=== PATIENT | male | born 1940 | race Caucasian/White ===

== ENCOUNTER 2021-06-02 14:30 | Inpatient (IN) | payer MEDICARE, BC ==
[2021-06-02 16:01] VITALS: BMI 22.7
[2021-06-07] MEDS ORDERED: Ketorolac Tromethamine 30 MG/ML VIAL ONE (08:13)
[2021-06-07] MEDS ORDERED: Gabapentin 300 MG CAP ONE (08:13)
[2021-06-07] MEDS ORDERED: Acetaminophen 500 MG TAB ONE (08:13)
[2021-06-07] MEDS ORDERED: Midazolam HCl 2 mg/2 ml Vial ONE (08:32)
[2021-06-07] MEDS ORDERED: Fentanyl 100 MCG/2 ML VIAL ONE ×2 (08:32→10:19)
[2021-06-07] MEDS ORDERED: HYDROmorphone 0.5 MG/0.5 ML SYRINGE ONE (10:19)
[2021-06-07] MEDS ORDERED: Piperacillin/Tazobactam 3.375 GM VIAL ONE (10:24)
[2021-06-07] MEDS ORDERED: Sodium Chloride 0.9% 100 ML ONE (10:25)
[2021-06-07] MEDS ORDERED: Ropivacaine 0.5% HCl/PF (150 MG/30 ML VIAL) ONE (10:35)
[2021-06-07] MEDS ORDERED: Dexamethasone 20 MG/5 ML VIAL ONE (10:35)
[2021-06-07] MEDS ORDERED: ePHEDrine 50 MG/ML VIAL ONE (10:35)
[2021-06-07] MEDS ORDERED: PROPOFOL 200 MG/20 ML VIAL ONE (10:35)
[2021-06-07] MEDS ORDERED: Lidocaine 1% PF 5 ML VIAL ONE (10:35)
[2021-06-07] MEDS ORDERED: Ondansetron PF 4 MG/2 ML Vial ONE (10:35)
[2021-06-07] MEDS ORDERED: PHENYLEPHRINE-NS 100 MCG/ML 10 ML SYRINGE ONE (10:35)
[2021-06-07] MEDS ORDERED: Rocuronium Bromide 10 MG/ML (10ML VIAL) ONE (10:35)
[2021-06-07] MEDS ORDERED: Promethazine HCl 25 MG/ML VIAL IVPB PRN (13:19)
[2021-06-07] MEDS ORDERED: HYDROmorphone 2 MG/ML VIAL SLOW IVP PRN (13:19)
[2021-06-07] MEDS ORDERED: Promethazine HCl 25 MG/ML VIAL IM PRN (13:19)
[2021-06-07] MEDS ORDERED: Ondansetron HCl/PF 4 MG/2 ML Vial IVP PRN (13:19)
[2021-06-07] MEDS ORDERED: Ondansetron PF 4 MG/2 ML Vial IVP PRN (14:28)
[2021-06-07] MEDS ORDERED: Morphine 4 MG/ML VIAL SLOW IVP PRN ×3 (14:28→14:46)
[2021-06-07] MEDS ORDERED: Acetaminophen 500 MG TAB PO SCH (14:45)
[2021-06-07] MEDS ORDERED: Clindamycin/D5W 900 MG in Premix Bag 1 BAG IVPB SCH (15:00)
[2021-06-07] MEDS: D5 1/2 NS w/20 mEq KCL 1,000 ML IV SCH ×2 (19:37→20:29)
[2021-06-07] MEDS: Gabapentin 100 MG CAP PO SCH ×2 (19:38→20:31)
[2021-06-07] MEDS: Ketorolac Tromethamine 30 MG/ML VIAL IVP SCH ×2 (19:39→23:48)
[2021-06-07] MEDS: Famotidine 20 MG TAB PO SCH (20:30)
[2021-06-07] MEDS: Acetaminophen 500 MG TAB PO SCH (20:30)
[2021-06-07] MEDS: Enoxaparin Sodium 40 MG/0.4 ML SYRINGE SC SCH (20:30)
[2021-06-07] MEDS: Carvedilol 6.25 MG TAB PO SCH (20:30)
[2021-06-07] MEDS: Clindamycin/D5W 900 MG in Premix Bag 1 BAG IVPB SCH (20:31)
[2021-06-08] MEDS: Acetaminophen 500 MG TAB PO SCH ×5 (02:17→19:38)
[2021-06-08] MEDS: Clindamycin/D5W 900 MG in Premix Bag 1 BAG IVPB SCH ×2 (02:18→08:18)
[2021-06-08 05:31] LABS: #Lymphocytes 1.3 thou/uL (1.20-3.40); #Monocytes 1.1 thou/uL (0.11-0.59); #Neutrophils 12.1 thou/uL (1.40-6.50); %Basophils 0.1 % (0.0-1.0); %Eosinophils 0.1 % (0.0-10.0); %Lymphocytes 9.1 % (21.0-51.0); %Monocytes 7.3 % (0.0-10.0); %Neutrophils 83.5 % (42.0-75.0); Hemoglobin 11.8 g/dL (14.0-18.0); Mean Corpuscular HGB CONC 32.2 g/dL (32.0-36.0); Mean Corpuscular Hemoglobin 32.3 pg (27.0-31.0); Mean Platelet Volume 6.5 fL (7.4-10.4); Platelet Count 234 thou/uL (130-400); RBC Distribution Width 11.1 % (11.5-14.5); Red Blood Cell (RBC) Count 3.64 mill/uL (4.70-6.10); White Blood Cell (WBC) Count 14.5 thou/uL (4.8-10.8)
[2021-06-08] MEDS: Ketorolac Tromethamine 30 MG/ML VIAL IVP SCH ×4 (05:40→23:53)
[2021-06-08] MEDS: D5 1/2 NS w/20 mEq KCL 1,000 ML IV SCH (05:42)
[2021-06-08 05:49] LABS: Anion Gap 10 mmol/L (10-20); BUN (Urea Nitrogen) 9 mg/dL (8.4-25.7); Calc. Creatinine Clearance 70 mL/min (70-130); Calcium 8.4 mg/dL (7.8-10.44); Carbon Dioxide 24 mmol/L (23-31); Chloride 100 mmol/L (98-107); Glucose 161 mg/dL (83-110); Potassium 4.3 mmol/L (3.5-5.1); Sodium 130 mmol/L (136-145)
[2021-06-08] MEDS ORDERED: Sodium Chloride 0.9% 1,000 ML IV SCH (07:45)
[2021-06-08] MEDS: Famotidine 20 MG TAB PO SCH ×2 (08:20→19:38)
[2021-06-08] MEDS: Gabapentin 100 MG CAP PO SCH ×4 (08:20→19:38)
[2021-06-08] MEDS: Carvedilol 6.25 MG TAB PO SCH ×2 (08:20→19:39)
[2021-06-08 16:12] LABS: #Lymphocytes 1.4 thou/uL (1.20-3.40); #Neutrophils 12.9 thou/uL (1.40-6.50); %Basophils 0.1 % (0.0-1.0); %Eosinophils 0.2 % (0.0-10.0); %Lymphocytes 8.9 % (21.0-51.0); %Monocytes 6.6 % (0.0-10.0); %Neutrophils 84.1 % (42.0-75.0); Hemoglobin 11.6 g/dL (14.0-18.0); Mean Corpuscular HGB CONC 33.2 g/dL (32.0-36.0); Mean Corpuscular Hemoglobin 33.3 pg (27.0-31.0); Mean Platelet Volume 6.4 fL (7.4-10.4); Platelet Count 225 thou/uL (130-400); RBC Distribution Width 11.2 % (11.5-14.5); Red Blood Cell (RBC) Count 3.49 mill/uL (4.70-6.10); White Blood Cell (WBC) Count 15.3 thou/uL (4.8-10.8)
[2021-06-08] MEDS: Sodium Chloride 0.9% 1,000 ML IV SCH (19:38)
[2021-06-08] MEDS: Enoxaparin Sodium 40 MG/0.4 ML SYRINGE SC SCH (19:39)
[2021-06-09] MEDS: Acetaminophen 500 MG TAB PO SCH ×3 (02:17→15:38)
[2021-06-09] MEDS: Ketorolac Tromethamine 30 MG/ML VIAL IVP SCH ×2 (05:23→12:43)
[2021-06-09 05:31] LABS: #Lymphocytes 1.3 thou/uL (1.20-3.40); #Monocytes 1.2 thou/uL (0.11-0.59); #Neutrophils 11.3 thou/uL (1.40-6.50); %Eosinophils 0.1 % (0.0-10.0); %Lymphocytes 9.6 % (21.0-51.0); %Monocytes 8.9 % (0.0-10.0); %Neutrophils 81.4 % (42.0-75.0); Hemoglobin 11.5 g/dL (14.0-18.0); Mean Corpuscular HGB CONC 32.7 g/dL (32.0-36.0); Mean Corpuscular Hemoglobin 33.1 pg (27.0-31.0); Mean Platelet Volume 6.4 fL (7.4-10.4); Platelet Count 192 thou/uL (130-400); RBC Distribution Width 11.2 % (11.5-14.5); Red Blood Cell (RBC) Count 3.47 mill/uL (4.70-6.10); White Blood Cell (WBC) Count 13.9 thou/uL (4.8-10.8)
[2021-06-09 05:53] LABS: Anion Gap 6 mmol/L (10-20); BUN (Urea Nitrogen) 11 mg/dL (8.4-25.7); Calc. Creatinine Clearance 78 mL/min (70-130); Calcium 8.1 mg/dL (7.8-10.44); Carbon Dioxide 27 mmol/L (23-31); Chloride 102 mmol/L (98-107); Glucose 103 mg/dL (83-110); Potassium 4.2 mmol/L (3.5-5.1); Sodium 131 mmol/L (136-145)
[2021-06-09] MEDS: Carvedilol 6.25 MG TAB PO SCH (08:26)
[2021-06-09] MEDS: Gabapentin 100 MG CAP PO SCH ×2 (08:27→15:39)
[2021-06-09] MEDS: Famotidine 20 MG TAB PO SCH (08:28)
[2021-06-09] MEDS: Sodium Chloride 0.9% 1,000 ML IV SCH (08:29)
[2021-06-09] MEDS ORDERED: traMADol HCl 50 MG TAB PO PRN (14:18)
[2021-06-09] MEDS ORDERED: Cyanocobalamin (Vitamin B-12) 1,000 MCG TAB PO SCH (15:00)
[2021-06-09] MEDS ORDERED: Ibuprofen 600 MG TAB PO PRN (15:56)
[2021-06-09 16:39] VITALS: BP 122/72; TEMP 98.3
[2021-06-09] MEDS ORDERED: Vit A,C & E/Lutein/Minerals Tablet PO SCH (21:00)
[2021-06-10] MEDS ORDERED: Cholecalciferol 1,000 UNITS (25 MCG) TAB PO SCH (09:00)
== END 2021-06-09 17:50 | disposition home or self-care (01) | DRG 330 ==
LOC: SURG A 06-07 05:55 → SURG B 06-07 18:09
PROVIDERS: ADMIT Specialist; ATTEND Specialist
PROC: 0DTN4ZZ Resection of Sigmoid Colon, Percutaneous Endoscopic Approach (ICD-10-PCS; principal; 2021-06-07)
DX: K57.32 Diverticulitis of large intestine without perforation or abscess without bleeding (principal); N13.8 Other obstructive and reflux uropathy; I42.9 Cardiomyopathy, unspecified; Z20.822 Contact with and (suspected) exposure to COVID-19; N40.1 Benign prostatic hyperplasia with lower urinary tract symptoms; K21.9 Gastro-esophageal reflux disease without esophagitis; I50.9 Heart failure, unspecified; E78.5 Hyperlipidemia, unspecified; E55.9 Vitamin D deficiency, unspecified; G43.909 Migraine, unspecified, not intractable, without status migrainosus; K40.90 Unilateral inguinal hernia, without obstruction or gangrene, not specified as recurrent; I48.91 Unspecified atrial fibrillation; R33.8 Other retention of urine; Z95.0 Presence of cardiac pacemaker; Z86.16 Personal history of COVID-19; Z79.52 Long term (current) use of systemic steroids; Z79.899 Other long term (current) drug therapy; Z90.49 Acquired absence of other specified parts of digestive tract; Z90.89 Acquired absence of other organs; Z88.2 Allergy status to sulfonamides; Z88.8 Allergy status to other drugs, medicaments and biological substances
CPT/HCPCS: 36415; 36416; 80048; 85025; 88307; A4649; C1713; J1100; J1170; J1650; J1885; J2250; J2405; J2543; J2704; J2795; J3010; J3480; J3490; J7050

== ENCOUNTER 2021-06-02 14:32 | Outpatient (CLI) | payer MEDICARE, BC ==
[2021-06-03 16:11] LABS: SARS-CoV-2 PCR by NAA Not Detected (NotDetected)
== END 2021-06-02 14:33 | disposition home or self-care (01) ==
LOC: LABBT 14:32
PROVIDERS: ATTEND Specialist
DX: Z01.818 Encounter for other preprocedural examination (principal); K57.92 Diverticulitis of intestine, part unspecified, without perforation or abscess without bleeding; Z20.822 Contact with and (suspected) exposure to COVID-19
CPT/HCPCS: 93005; U0003; U0005; 93010

== ENCOUNTER 2021-08-09 07:12 | Outpatient (CLI) | payer MEDICARE, BC | END 2021-08-09 07:13 | disposition home or self-care (01) | LOC: ULT 07:12 | PROVIDERS: ATTEND Family Medicine | DX: R10.13 Epigastric pain (principal); K76.89 Other specified diseases of liver | CPT/HCPCS: 76700 ==

== ENCOUNTER 2021-08-16 10:16 | Outpatient (CLI) | payer MEDICARE, BC | END 2021-08-16 10:17 | disposition home or self-care (01) | LOC: BICRAD 10:16 | PROVIDERS: ATTEND Family Medicine | DX: R10.9 Unspecified abdominal pain (principal) | CPT/HCPCS: 74019 ==

== ENCOUNTER 2021-08-16 14:55 | Inpatient (IN) | payer MEDICARE, BC ==
[2021-08-16 15:36] LABS: #Eosinphils 0.1 thou/uL (0.0-0.7); #Lymphocytes 2.3 thou/uL (1.20-3.40); #Monocytes 0.5 thou/uL (0.11-0.59); #Neutrophils 5.5 thou/uL (1.40-6.50); %Basophils 0.5 % (0.0-1.0); %Eosinophils 1.1 % (0.0-10.0); %Lymphocytes 27.6 % (21.0-51.0); %Monocytes 5.5 % (0.0-10.0); %Neutrophils 65.3 % (42.0-75.0); Hemoglobin 13.5 g/dL (14.0-18.0); Mean Corpuscular HGB CONC 32.3 g/dL (32.0-36.0); Mean Corpuscular Hemoglobin 32.1 pg (27.0-31.0); Mean Corpuscular Volume 99.5 fL (78.0-98.0); Platelet Count 273 thou/uL (130-400); RBC Distribution Width 11.7 % (11.5-14.5); Red Blood Cell (RBC) Count 4.19 mill/uL (4.70-6.10); White Blood Cell (WBC) Count 8.5 thou/uL (4.8-10.8)
[2021-08-16 15:54] LABS: ALT (SGPT) 11 U/L (8-55); AST (SGOT) 15 U/L (5-34); Albumin 3.9 g/dL (3.4-4.8); Alkaline Phosphatase 66 U/L (40-110); Anion Gap 12 mmol/L (10-20); BUN (Urea Nitrogen) 13 mg/dL (8.4-25.7); Bilirubin, Total 1.5 mg/dL (0.2-1.2); Calc. Creatinine Clearance 0 mL/min (70-130); Calcium 9.3 mg/dL (7.8-10.44); Carbon Dioxide 29 mmol/L (23-31); Chloride 100 mmol/L (98-107); Glucose 106 mg/dL (83-110); Lipase 14 U/L (8-78); Potassium 3.8 mmol/L (3.5-5.1); Protein, Total 6.9 g/dL (5.8-8.1); Sodium 137 mmol/L (136-145)
[2021-08-16 16:07] LABS: Bilirubin Negative (Negative); Blood, Urine Negative (Negative); Clarity Clear (Clear); Glucose, Urine (Dipstick) Normal (Negative); Ketone, Urine 10 mg/dL (Negative); Leukocyte Negative Leu/uL (Negative); Nitrite Negative (Negative); Protein, Urine (Dipstick) 10 mg/dL (Neg-Trace); Specific Gravity, Urine 1.022 (1.002-1.036); Urobilinogen Normal mg/dL (Less than 2)
[2021-08-16] MEDS ORDERED: metroNIDAZOLE 500 MG in Premix Bag 1 BAG IVPB SCH ×3 (17:15→23:59)
[2021-08-16] MEDS ORDERED: Sodium Chloride 0.9% 1,000 ML IV SCH ×2 (17:15→18:15)
[2021-08-16] MEDS ORDERED: Vancomycin 25 MG/ML Oral SOLN PO SCH ×2 (17:30→20:00)
[2021-08-16] MEDS ORDERED: metroNIDAZOLE 500 MG/100 ML BAG ONE (18:04)
[2021-08-16] MEDS ORDERED: Acetaminophen 325 MG TAB PO PRN (18:12)
[2021-08-16] MEDS ORDERED: Acetaminophen 650 MG Suppository PR PRN (18:12)
[2021-08-16] MEDS ORDERED: Ondansetron PF 4 MG/2 ML Vial IVP PRN (18:12)
[2021-08-16] MEDS ORDERED: Melatonin 3 MG TAB PO PRN (18:20)
[2021-08-16 20:12] VITALS: BMI 21.2
[2021-08-16] MEDS ORDERED: Pantoprazole 40 MG VIAL IVP SCH (21:00)
[2021-08-16] MEDS: Heparin 5,000 UNITS/ML VIAL SC SCH (21:38)
[2021-08-16] MEDS ORDERED: Carvedilol 6.25 MG TAB PO SCH (23:59)
[2021-08-17] MEDS: Dextrose 5 %-0.45 % NaCl 1,000 ML IV SCH ×4 (00:10→23:45)
[2021-08-17] MEDS: metroNIDAZOLE 500 MG in Premix Bag 1 BAG IVPB SCH ×2 (01:10→08:30)
[2021-08-17] MEDS: Vancomycin 25 MG/ML Oral SOLN PO SCH ×6 (01:11→23:25)
[2021-08-17 06:09] LABS: #Lymphocytes 1.9 thou/uL (1.20-3.40); #Monocytes 0.5 thou/uL (0.11-0.59); %Basophils 0.2 % (0.0-1.0); %Eosinophils 0.4 % (0.0-10.0); %Lymphocytes 20.3 % (21.0-51.0); %Neutrophils 74.1 % (42.0-75.0); Hemoglobin 12.3 g/dL (14.0-18.0); Mean Corpuscular HGB CONC 32.3 g/dL (32.0-36.0); Mean Corpuscular Volume 98.8 fL (78.0-98.0); Mean Platelet Volume 6.2 fL (7.4-10.4); Platelet Count 245 thou/uL (130-400); RBC Distribution Width 11.5 % (11.5-14.5); Red Blood Cell (RBC) Count 3.85 mill/uL (4.70-6.10); White Blood Cell (WBC) Count 9.5 thou/uL (4.8-10.8)
[2021-08-17 06:40] LABS: ALT (SGPT) 8 U/L (8-55); AST (SGOT) 12 U/L (5-34); Albumin 3.3 g/dL (3.4-4.8); Alkaline Phosphatase 53 U/L (40-110); Anion Gap 10 mmol/L (10-20); BUN (Urea Nitrogen) 12 mg/dL (8.4-25.7); Bilirubin, Total 1.2 mg/dL (0.2-1.2); Calc. Creatinine Clearance 71 mL/min (70-130); Calcium 8.6 mg/dL (7.8-10.44); Carbon Dioxide 25 mmol/L (23-31); Chloride 103 mmol/L (98-107); Globulin 2.4 g/dL (2.4-3.5); Glucose 134 mg/dL (83-110); Potassium 3.6 mmol/L (3.5-5.1); Protein, Total 5.7 g/dL (5.8-8.1); Sodium 134 mmol/L (136-145)
[2021-08-17] MEDS: Heparin 5,000 UNITS/ML VIAL SC SCH ×2 (08:20→20:58)
[2021-08-17] MEDS: Carvedilol 6.25 MG TAB PO SCH ×2 (08:24→20:57)
[2021-08-17] MEDS ORDERED: Pantoprazole 40 MG VIAL IVP SCH (09:00)
[2021-08-17] MEDS: Fidaxomicin 200 MG TAB PO SCH (20:57)
[2021-08-18] MEDS: Vancomycin 25 MG/ML Oral SOLN PO SCH (05:48)
[2021-08-18] MEDS ORDERED: Famotidine 20 MG TAB PO SCH (09:00)
[2021-08-18] MEDS: Heparin 5,000 UNITS/ML VIAL SC SCH (09:02)
[2021-08-18] MEDS: Fidaxomicin 200 MG TAB PO SCH (09:11)
[2021-08-18] MEDS: Carvedilol 6.25 MG TAB PO SCH (09:11)
[2021-08-18 12:56] VITALS: BP 162/85; TEMP 97.6
== END 2021-08-18 13:29 | disposition home or self-care (01) | DRG 372 ==
LOC: ERS 14:55 → T4-B 16:50 → OBSVTOIN 08-17 11:44
PROVIDERS: ADMIT Internal Medicine; ATTEND Internal Medicine
DX: A04.72 Enterocolitis due to Clostridium difficile, not specified as recurrent (principal); K57.32 Diverticulitis of large intestine without perforation or abscess without bleeding; I42.9 Cardiomyopathy, unspecified; K21.9 Gastro-esophageal reflux disease without esophagitis; I49.5 Sick sinus syndrome; N40.0 Benign prostatic hyperplasia without lower urinary tract symptoms; I25.10 Atherosclerotic heart disease of native coronary artery without angina pectoris; Z20.822 Contact with and (suspected) exposure to COVID-19; Z88.8 Allergy status to other drugs, medicaments and biological substances; Z90.49 Acquired absence of other specified parts of digestive tract; Z88.2 Allergy status to sulfonamides; Z79.899 Other long term (current) drug therapy; Z95.0 Presence of cardiac pacemaker; R10.9 Unspecified abdominal pain
CPT/HCPCS: 36415; 74019; 74176; 80053; 81003; 83605; 83690; 85025; J7042; J7050; U0003; U0005

== ENCOUNTER 2021-10-17 14:34 | Outpatient (CLI) | payer MEDICARE, BC ==
[2021-10-17 15:38] LABS: #Basophils 0.1 10x3/uL (0.0-0.2); #Eosinphils 0.3 10x3/uL (0.0-0.5); #Monocytes 0.5 10x3/uL (0.0-1.1); #Neutrophils 5.4 10x3/uL (1.5-8.4); %Basophils 0.7 % (0.0-2.0); %Eosinophils 2.9 % (0.0-6.0); %Lymphocytes 28.9 % (18.0-47.0); %Monocytes 5.8 % (0.0-10.0); %Neutrophils 61.5 % (40.0-75.0); Hemoglobin 13.5 g/dL (13.5-17.5); Mean Corpuscular HGB CONC 33.2 g/dL (32.0-36.0); Mean Corpuscular Hemoglobin 30.8 pg (27.0-33.0); Mean Corpuscular Volume 92.9 fl (81.2-95.1); Mean Platelet Volume 9.2 fl (7.4-10.4); Platelet Count 253 10x3/uL (150-450); RBC Distribution Width 12.4 % (11.5-14.5); Red Blood Cell (RBC) Count 4.38 10x6/uL (4.32-5.72); White Blood Cell (WBC) Count 8.8 10x3/uL (3.5-10.5)
[2021-10-17 16:15] LABS: ALT (SGPT) 16 U/L (8-55); AST (SGOT) 17 U/L (5-34); Albumin 4.2 g/dL (3.4-4.8); Alkaline Phosphatase 72 U/L (40-110); Anion Gap 13 mmol/L (10-20); BUN (Urea Nitrogen) 15 mg/dL (8.4-25.7); Bilirubin, Total 0.7 mg/dL (0.2-1.2); Calc. Creatinine Clearance 0 mL/min (70-130); Calcium 9.7 mg/dL (7.8-10.44); Carbon Dioxide 27 mmol/L (23-31); Chloride 102 mmol/L (98-107); Estimated GFR 90; Globulin 2.7 g/dL (2.4-3.5); Glucose 112 mg/dL (83-110); Potassium 4.2 mmol/L (3.5-5.1); Protein, Total 6.9 g/dL (5.8-8.1); Sodium 138 mmol/L (136-145)
== END 2021-10-17 14:35 | disposition home or self-care (01) ==
LOC: LABBT 14:34
PROVIDERS: ATTEND Specialist
DX: Z01.818 Encounter for other preprocedural examination (principal); Z20.822 Contact with and (suspected) exposure to COVID-19
CPT/HCPCS: 80053; 85025; 87811; 93005; 93010

== ENCOUNTER 2021-10-20 07:30 | Day surgery (SDC) | payer MEDICARE, BC ==
[2021-10-18 13:15] VITALS: BMI 21.7
[2021-10-20] MEDS ORDERED: Ketorolac Tromethamine 30 MG/ML VIAL ONE (08:01)
[2021-10-20] MEDS ORDERED: Acetaminophen 500 MG TAB ONE (08:01)
[2021-10-20] MEDS ORDERED: Gabapentin 300 MG CAP ONE (08:01)
[2021-10-20] MEDS ORDERED: Bupivacaine/Epinephrine 0.25% 30 ML VIAL ONE (08:59)
[2021-10-20] MEDS ORDERED: Sodium Chloride 0.9% 100 ML ONE (09:51)
[2021-10-20] MEDS ORDERED: CEFAZOLIN 2 GM VIAL ONE (09:51)
[2021-10-20] MEDS ORDERED: fentaNYL Citrate/PF 100 MCG/2 ML SYRINGE ONE (09:54)
[2021-10-20] MEDS ORDERED: Glycopyrrolate 0.2 MG/ML 5 ML SYRINGE ONE (10:09)
[2021-10-20] MEDS ORDERED: PROPOFOL 200 MG/20 ML VIAL ONE (10:09)
[2021-10-20] MEDS ORDERED: Labetalol HCl 100 MG/20 ML VIAL ONE (10:09)
[2021-10-20] MEDS ORDERED: Ondansetron PF 4 MG/2 ML Vial ONE (10:09)
[2021-10-20] MEDS ORDERED: ePHEDrine 50 MG/ML VIAL ONE (10:09)
[2021-10-20] MEDS ORDERED: Rocuronium Bromide 10 MG/ML (10ML VIAL) ONE (10:09)
[2021-10-20] MEDS ORDERED: Lidocaine 1% PF 5 ML VIAL ONE (10:09)
[2021-10-20] MEDS ORDERED: Neostigmine Methylsulfate 3 MG/3 ML SYRINGE ONE (10:09)
[2021-10-20] MEDS ORDERED: Dexamethasone 20 MG/5 ML VIAL ONE (10:09)
[2021-10-20] MEDS ORDERED: Tamsulosin HCl 0.4 MG CAP ONE (14:12)
== END 2021-10-20 17:25 | disposition short-term general hospital (02) ==
LOC: SDC 07:30
PROVIDERS: ATTEND Specialist
PROC: 0YU64JZ Supplement Left Inguinal Region with Synthetic Substitute, Percutaneous Endoscopic Approach (ICD-10-PCS; principal; 2021-10-20)
DX: K40.90 Unilateral inguinal hernia, without obstruction or gangrene, not specified as recurrent (principal); N40.1 Benign prostatic hyperplasia with lower urinary tract symptoms; R33.8 Other retention of urine; I50.9 Heart failure, unspecified; I48.91 Unspecified atrial fibrillation; E78.5 Hyperlipidemia, unspecified; K21.9 Gastro-esophageal reflux disease without esophagitis; Z79.82 Long term (current) use of aspirin; Z79.899 Other long term (current) drug therapy; Z88.8 Allergy status to other drugs, medicaments and biological substances; Z86.16 Personal history of COVID-19; Z95.0 Presence of cardiac pacemaker
CPT/HCPCS: 49650; C1781; J0690; J1100; J1885; J2405; J2704; J3490

== ENCOUNTER 2022-10-31 07:52 | Outpatient (CLI) | payer MEDICARE, BC | END 2022-10-31 07:53 | disposition home or self-care (01) | LOC: CT 07:52 | PROVIDERS: ATTEND Internal Medicine Gastroenterology | DX: R19.00 Intra-abdominal and pelvic swelling, mass and lump, unspecified site (principal); K59.09 Other constipation; R19.8 Other specified symptoms and signs involving the digestive system and abdomen; K52.9 Noninfective gastroenteritis and colitis, unspecified; J90 Pleural effusion, not elsewhere classified | CPT/HCPCS: 74178; 82565 ==

== ENCOUNTER 2023-03-13 08:00 | Inpatient (IN) | payer MEDICARE, BC ==
[2023-03-18] MEDS ORDERED: Midazolam HCl 2 mg/2 ml Vial ONE ×2 (10:49→11:44)
[2023-03-18] MEDS ORDERED: fentaNYL PF 100 MCG/2 ML SYRINGE ONE (10:49)
[2023-03-18] MEDS ORDERED: Bupivacaine 0.25% HCL 30 ML VIAL ONE ×2 (10:49→11:24)
[2023-03-18] MEDS ORDERED: Ketorolac Tromethamine 30 MG (1 mL) VIAL ONE ×3 (10:58→19:55)
[2023-03-18] MEDS ORDERED: Acetaminophen 500 MG TAB ONE (10:59)
[2023-03-18] MEDS ORDERED: EPINEPHrine 1 MG/ML VIAL ONE (11:24)
[2023-03-18] MEDS ORDERED: Lidocaine 1% (PF) 30 ML VIAL ONE (11:24)
[2023-03-18] MEDS ORDERED: PROPOFOL 20 ML ONE (11:29)
[2023-03-18] MEDS ORDERED: PHENYLEPHRINE-NS 100 MCG/ML 10 ML SYRINGE ONE (11:30)
[2023-03-18] MEDS ORDERED: Lidocaine 2% PF 5 ML VIAL ONE (11:30)
[2023-03-18] MEDS ORDERED: fentaNYL 50 mcg/mL 1 mL Vial ONE (11:30)
[2023-03-18] MEDS ORDERED: Rocuronium Bromide 10 MG/ML (10ML VIAL) ONE (11:30)
[2023-03-18] MEDS ORDERED: LevoFLOXacin D5W 500 mg (100 mL) BAG ONE (11:40)
[2023-03-18] MEDS ORDERED: Ropivacaine 0.5% HCl/PF (150 MG/30 ML VIAL) ONE (12:15)
[2023-03-18] MEDS ORDERED: Famotidine/PF 20 mg/2ml Vial ONE (13:40)
[2023-03-18] MEDS ORDERED: Ondansetron PF 4 MG/2 ML Vial ONE (13:42)
[2023-03-18] MEDS ORDERED: SUGAMMADEX SODIUM 200 MG/2 ML VIAL ONE (13:43)
[2023-03-18] MEDS ORDERED: Ipratropium/Albuterol 3 ML NEB NEB PRN (16:16)
[2023-03-18] MEDS ORDERED: Morphine 2 MG/ML VIAL SLOW IVP PRN (16:16)
[2023-03-18] MEDS ORDERED: Promethazine HCl 25 MG/ML VIAL IM PRN (16:16)
[2023-03-18] MEDS ORDERED: hydrALAZINE 20 MG/ML VIAL SLOW IVP PRN (16:16)
[2023-03-18] MEDS ORDERED: Morphine 4 MG/ML VIAL SLOW IVP PRN (16:16)
[2023-03-18] MEDS ORDERED: Ondansetron PF 4 MG/2 ML Vial IVP PRN (16:16)
[2023-03-18] MEDS: D5 1/2 NS w/20 mEq KCL 1,000 ML IV SCH (18:41)
[2023-03-18] MEDS: Ketorolac Tromethamine 30 MG (1 mL) VIAL IVP SCH (19:53)
[2023-03-18 20:53] VITALS: BMI 23.3
[2023-03-18] MEDS: Carvedilol 6.25 MG TAB PO SCH (21:33)
[2023-03-18] MEDS: Famotidine 20 MG TAB PO SCH (21:34)
[2023-03-18] MEDS: Famotidine/PF 20 mg/2ml Vial SLOW IVP SCH (21:34)
[2023-03-19] MEDS: Ketorolac Tromethamine 30 MG (1 mL) VIAL IVP SCH ×6 (00:05→23:25)
[2023-03-19] MEDS: D5 1/2 NS w/20 mEq KCL 1,000 ML IV SCH ×4 (01:54→15:33)
[2023-03-19 03:54] LABS: #Monocytes 1.1 thou/uL (0.11-0.59); #Neutrophils 7.9 thou/uL (1.40-6.50); %Basophils 0.3 % (0.0-1.0); %Eosinophils 0.1 % (0.0-10.0); %Lymphocytes 17.8 % (21.0-51.0); %Monocytes 9.8 % (0.0-10.0); %Neutrophils 71.7 % (42.0-75.0); Hematocrit 38.9 % (42.0-52.0); Hemoglobin 12.7 g/dL (14.0-18.0); Mean Corpuscular HGB CONC 32.6 g/dL (32.0-36.0); Mean Corpuscular Hemoglobin 32.2 pg (27.0-31.0); Mean Corpuscular Volume 98.5 fl (78.0-98.0); Mean Platelet Volume 9.4 fL (7.4-10.4); Platelet Count 186 10x3/uL (130-400); RBC Distribution Width 11.9 % (11.5-14.5); Red Blood Cell (RBC) Count 3.95 mill/uL (4.70-6.10)
[2023-03-19 04:24] LABS: Anion Gap 13 mmol/L (10-20); BUN (Urea Nitrogen) 10 mg/dL (8.4-25.7); Calc. Creatinine Clearance 65 mL/min (70-130); Calcium 8.4 mg/dL (7.8-10.44); Carbon Dioxide 26 mmol/L (23-31); Chloride 102 mmol/L (98-107); Estimated GFR 87; Glucose 118 mg/dL (83-110); Potassium 3.7 mmol/L (3.5-5.1); Sodium 137 mmol/L (136-145)
[2023-03-19] MEDS: Carvedilol 6.25 MG TAB PO SCH ×2 (08:55→20:24)
[2023-03-19] MEDS: Enoxaparin 40 MG (0.4 mL) SYRINGE SC SCH (08:55)
[2023-03-19] MEDS: Famotidine 20 MG TAB PO SCH ×2 (08:55→20:24)
[2023-03-19] MEDS: Famotidine/PF 20 mg/2ml Vial SLOW IVP SCH ×2 (08:56→20:29)
[2023-03-19] MEDS ORDERED: HYDROcodone/Acetaminophen 7.5/325 mg Tablet PO PRN (15:54)
[2023-03-19] MEDS: Acetaminophen 500 MG TAB PO PRN (18:39)
[2023-03-20] MEDS: D5 1/2 NS w/20 mEq KCL 1,000 ML IV SCH (05:01)
[2023-03-20] MEDS: Acetaminophen 500 MG TAB PO PRN (05:02)
[2023-03-20] MEDS: Ketorolac Tromethamine 30 MG (1 mL) VIAL IVP SCH ×2 (06:08→12:29)
[2023-03-20] MEDS: Famotidine 20 MG TAB PO SCH (10:04)
[2023-03-20] MEDS: Carvedilol 6.25 MG TAB PO SCH (10:04)
[2023-03-20] MEDS: Enoxaparin 40 MG (0.4 mL) SYRINGE SC SCH (10:05)
[2023-03-20] MEDS: Famotidine/PF 20 mg/2ml Vial SLOW IVP SCH (10:05)
[2023-03-20 12:04] VITALS: BP 125/78; TEMP 97.8
== END 2023-03-20 14:07 | disposition home or self-care (01) | DRG 330 ==
LOC: SURG A 03-18 10:20
PROVIDERS: ADMIT Specialist; ATTEND Specialist
PROC: 0DBE4ZZ Excision of Large Intestine, Percutaneous Endoscopic Approach (ICD-10-PCS; principal; 2023-03-18)
PROC: 0DBP4ZZ Excision of Rectum, Percutaneous Endoscopic Approach (ICD-10-PCS; 2023-03-18)
DX: Z43.3 Encounter for attention to colostomy (principal); K56.699 Other intestinal obstruction unspecified as to partial versus complete obstruction; Z79.899 Other long term (current) drug therapy; I48.91 Unspecified atrial fibrillation; E78.5 Hyperlipidemia, unspecified; K21.9 Gastro-esophageal reflux disease without esophagitis; Z98.890 Other specified postprocedural states; Z88.2 Allergy status to sulfonamides; Z88.8 Allergy status to other drugs, medicaments and biological substances
CPT/HCPCS: 36415; 80048; 85025; 88305; 88341; 88342; A4314; A4649; J0171; J1650; J1885; J1956; J2001; J2250; J2405; J2704; J2795; J3010; J3480; S0020; S0028

== ENCOUNTER 2023-03-13 08:03 | Outpatient (CLI) | payer MEDICARE, BC ==
[2023-03-13 09:37] LABS: #Basophils 0.1 10x3/uL (0.0-0.2); #Eosinphils 0.2 10x3/uL (0.0-0.5); #Monocytes 0.5 10x3/uL (0.0-1.1); #Neutrophils 3.9 10x3/uL (1.5-8.4); %Basophils 0.8 % (0.0-2.0); %Eosinophils 3.6 % (0.0-6.0); %Monocytes 7.1 % (0.0-10.0); %Neutrophils 59.3 % (40.0-75.0); Hematocrit 43.7 % (38.8-50.0); Hemoglobin 14.7 g/dL (13.5-17.5); Mean Corpuscular HGB CONC 33.6 g/dL (32.0-36.0); Mean Corpuscular Hemoglobin 32.9 pg (27.0-33.0); Mean Corpuscular Volume 97.8 fl (81.2-95.1); Platelet Count 214 10x3/uL (150-450); Red Blood Cell (RBC) Count 4.47 10x6/uL (4.32-5.72); White Blood Cell (WBC) Count 6.6 10x3/uL (3.5-10.5)
[2023-03-13 09:44] LABS: Anion Gap 13 mmol/L (10-20); BUN (Urea Nitrogen) 16 mg/dL (8.4-25.7); Calc. Creatinine Clearance 0 mL/min (70-130); Calcium 9.8 mg/dL (7.8-10.44); Carbon Dioxide 28 mmol/L (23-31); Chloride 105 mmol/L (98-107); Estimated GFR 88; Glucose 101 mg/dL (83-110); Sodium 142 mmol/L (136-145)
[2023-03-13 13:19] LABS: Hemoglobin A1c 5.7 % (4.0-6.0)
== END 2023-03-13 08:04 | disposition home or self-care (01) ==
LOC: LABBT 08:03
PROVIDERS: ATTEND Urology
DX: Z01.818 Encounter for other preprocedural examination (principal); Z93.3 Colostomy status; Z86.39 Personal history of other endocrine, nutritional and metabolic disease
CPT/HCPCS: 71046; 80048; 83036; 85025; 93005; 93010